=== PATIENT | male | born 1995 | race Caucasian/White ===

== ENCOUNTER 2017-10-23 23:17 | Emergency (ER) | payer OTHER, BC ==
[~2017-10-23] VITALS: Ht 182.9 cm; Wt 66.3 kg
[2017-10-23 23:23] VITALS: BP 145/99; PULSE 79; RESP 22; TEMP 97.5; O2SAT 99
--- NOTE | 2017-10-24 00:08 | PD ---
HPI Chief Complaint: Skin Problem Time Seen by Provider: 00:05 Travel History International Travel<30 days: No Contact w/Intl Traveler<30days: No Traveled to known affect area: No History of Present Illness HPI 22-year-old male presents to the emergency department for complaint of irritation to the groin area after using topical Null to remove hair from the child to area. Patient denies any blisters or excoriation. Patient has noted some redness and irritation. Patient became concerned and decided to come to the emergency room for evaluation. Patient has not seen blisters or pustules. No fever or chills. Patient has noted dysuria or painful urination and has not noticed any ulcerations. Patient is sexually active but denies sexually- transmitted infections. Patient rates pain as moderate to severe. PFSH Past Medical History Narrative Medical Scoliosis, ear surgery, occasional alcohol use; nursing notes reviewed Diminished Hearing: No Musculoskeletal: Yes (SCOLIOSIS/KYPHOSIS) Immunizations Current: Yes Tetanus Vaccination: < 5 Years Influenza Vaccination: No Past Surgical History Ear Surgery: Yes (BIILAT EAR ) Social History Alcohol Use: Yes (VERY RARE) Tobacco Use: No Substance Use: No Allergies-Medications (Allergen,Severity, Reaction): Coded Allergies: No Known Allergies (Unverified , 10/23/17) Reported Meds & Prescriptions Reported Meds & Active Scripts Active No Active Prescriptions or Reported Medications Review of Systems Except as stated in HPI: all other systems reviewed are Neg General / Constitutional: No: Fever, Chills HENT: No: Congestion Cardiovascular: No: Chest Pain or Discomfort Respiratory: No: Shortness of Breath Gastrointestinal: No: Vomiting Genitourinary: No: Dysuria Musculoskeletal: No: Myalgias, Arthralgias Skin: Positive Rash, Positive Dryness Neurologic: No: Weakness Psychiatric: Positive: Anxiety Hematologic/Lymphatic: No: Lymph Node Enlargement Physical Exam Narrative GENERAL: Well-developed well-nourished female in no acute distress no respiratory distress SKIN: Warm and dry. HEAD: Normocephalic. EYES: No scleral icterus. No injection or drainage. NECK: Supple, trachea midline. No JVD or lymphadenopathy. CARDIOVASCULAR: Regular rate and rhythm without murmurs, gallops, or rubs. RESPIRATORY: Breath sounds equal bilaterally. No accessory muscle use. GASTROINTESTINAL: Abdomen soft, non-tender, nondistended. : Circumcised male with mild erythema where patient has had recent application of Null depilatory, no vesicles no bullous lesions no pustules no excoriated tissue no ulcerations no drainage. MUSCULOSKELETAL: No cyanosis, or edema. BACK: Nontender without obvious deformity. No CVA tenderness. Data Data Last Documented VS Orders Orders Ed Discharge Order (10/24/17 00:05) MDM Medical Decision Making Medical Screen Exam Complete: Yes Emergency Medical Condition: Yes Medical Record Reviewed: Yes Differential Diagnosis Adverse chemical reaction, contact dermatitis, chemical dermatitis, allergic dermatitis, allergic reaction; no findings for anaphylaxis Narrative Course Patient with a contact dermatitis/allergic dermatitis secondary to topical exposure with Null depilatory patient has already. Flush the area and is encouraged to not use this product in the future. Diagnosis Primary Impression: Contact dermatitis due to chemicals Referrals: Primary Care Physician call for appointment Patient Instructions: General Instructions Additional Instructions: Keep area clean and dry May use antibacterial soap to area May apply topical antibiotic ointment sparingly to specific affected areas May use acetaminophen/Tylenol for fever 100.4F or greater or for minor discomfort May use ibuprofen/Advil/Motrin every 6-8 hours as needed for pain associated with inflammation or for fever 100.4F or greater Return to the emergency department for any concerns or change condition Follow-up with your primary care provider Do not apply the offending agent/product to the affected area again or in the future. Scripts No Active Prescriptions or Reported Meds Disposition: 01 DISCHARGE HOME Condition: Stable Marilou Calix MD Oct 24, 2017 00:08
== END 2017-10-24 00:24 | disposition home or self-care (01) ==
LOC: PHED 23:17
DX: L23.5 Allergic contact dermatitis due to other chemical products (principal); M41.9 Scoliosis, unspecified
CPT/HCPCS: 99282